=== PATIENT | male | born 1965 | race Asian ===

== ENCOUNTER 2022-10-21 08:20 | Emergency (ER) | payer BC ==
[~2022-10-21] VITALS: Ht 180.3 cm; Wt 73.0 kg
[2022-10-21] MEDS ORDERED: SIMV-343 PO (08:31)
[2022-10-21 08:32] VITALS: BP_SYST 125; PULSE 96; RESP 18; TEMP 97.6; O2SAT 97
[2022-10-21 09:06] VITALS: BP_SYST 139; PULSE 68; RESP 16; O2SAT 97
== END 2022-10-21 09:09 | disposition home or self-care (01) ==
LOC: SED 08:20
DX: R00.2 Palpitations (principal); R42 Dizziness and giddiness; E11.9 Type 2 diabetes mellitus without complications; Z79.899 Other long term (current) drug therapy
CPT/HCPCS: 93005; 99283